=== PATIENT | female | born 1955 ===

== ENCOUNTER 2024-05-16 20:59 | Outpatient (BNV) | payer MEDICARE, SELFPAY | END 2024-05-17 11:26 | PROVIDERS: Admitting Provider Psychiatry & Neurology Psychiatry; Visit Provider Internal Medicine Cardiovascular Disease | DX: F29 Unspecified psychosis not due to a substance or known physiological condition (principal) | CPT/HCPCS: 93010 ==

== ENCOUNTER 2024-05-16 20:59 | Inpatient (IN) | payer MEDICARE, SELFPAY ==
[2024-05-16 21:32] VITALS: BP 129/66; PULSE 70; RESP 20; TEMP 36.2; O2SAT 97
[2024-05-16 21:35] VITALS: BMI 25.7
[2024-05-16] MEDS: traZODone HCL 25 MG HALFTAB PO (23:50)
[2024-05-16] MEDS: Acetaminophen 325 MG TABLET 650 MG PO (23:50)
--- NOTE | 2024-05-17 | ECG_ITS ---
Test Reason : BASELINE EKG Blood Pressure : / mmHG Vent. Rate : 071 BPM Atrial Rate : 071 BPM P-R Int : 160 ms QRS Dur : 082 ms QT Int : 382 ms P-R-T Axes : 062 052 049 degrees QTc Int : 415 ms Normal sinus rhythm Normal ECG No previous ECGs available Referred By: Alyssa Rodriguez Electronically Signed By:German Martinez
--- NOTE | 2024-05-17 04:34 | PC.NURSE ---
Patient is a 68 y/o female admitted to S1 from [facility] at 21:23 on a CV for major depressive disorder. Patient has a PMHx of psychosis and anxiety with a psychiatric inpatient hospitalization approximately a month ago. Patient went to the ED at [facility] on 05/13/2024 with complaints of worsening anxiety and suicidal thoughts. Patient is alert and oriented x 4 upon arrival, very anxious and restless but cooperative and answering assessment questions appropriately. Patient reports inability to effectively cope with feelings of anxiety and depression since mother in 2019. Patient is currently denying any current thoughts of self harm / SI, is able to contract for safety. Skin and contraband check were completed upon arrival, patient oriented to unit and placed on five minutes checks. Medical history is significant for Insomnia, pure hypercholesterolemia, seizure disorder, transaminitis and vitamin b12 deficiency. director of logistics providers notified on admission.
--- NOTE | 2024-05-17 09:05 | P.HPPS_ITS ---
HPI Date of Service: 05/17/24 Chief Complaint: Major depressive disorder Sources of Information: patient interviewed, chart reviewed and crisis/core team assessment reviewed HPI Subjective Notes: Kramer Warning and Conditional Voluntary Narrative: The patient is a 68-year-old female, , living with her her own place, referred to the emergency room of another hospital out of our catchment area since she called 911 stating that she was feeling overwhelmed and suicidal. She was rushed to the emergency room of that hospital, assessed by crisis and apparently she adamantly denies suicidal ideation but according to t he assessment she had been worsening with suicidal ideation and ideas of harming herself. She also complained of anxiety, depressed mood, anhedonia and feelings of hopelessness. The assessment on the emergency room also noticed intermittently agitated and yelling she stating that she wants to go back home. She needed to be medicated IM at that point. On intake, the patient was extremely anxious hyperventilating unable to answer proper questions. I ordered 1 dose of Ativan 1 mg p.o. daily that help her and eventually was able to interview her. She admitted besides her depressive symptoms elicited before, she admitted psychotic symptoms such as paranoid delusions, the feeling that she is going to get 0.7 and disorganized thought process with thought blocking. She was able to contract for safety. I tried to gather collateral information, it seems that the patient had been treated before for depression and admitted 1 month before. Also it was noted that she had a past history of cognitive Past Psychiatric History: The patient is a very poor historian but apparently she was admitted 1 month before on another hospital for anxiety depression and disorganized thought process. It is unclear if the patient had been compliant after the discharge. Medical Evaluation Reviewed: Yes [facility] Medical History Depression Family History: Denies Social History: The patient had been twice, she lives with her current in her home. Substance History: Denies Trauma History: Unable to assess, the patient is a very poor historian Diagnostics Vital Signs (24Hr): Vital Signs - 24 hr 05/16/24 21:32 Temperature 97.2 F Pulse Rate 70 Respiratory Rate 20 Blood Pressure 129/66 Pulse Oximetry 97 Oxygen Delivery Method Room Air BMI result Body Mass Index 25.7 Meds/Allergies Meds Home Medications ?Medication ?Instructions ?Recorded ?Confirmed ?Type benztropine 0.5 mg tablet 0.5 mg PO BID 05/16/24 05/16/24 History escitalopram oxalate 20 mg tablet 20 mg PO DAILY 05/16/24 05/16/24 History risperidone 2 mg tablet 2 mg PO BEDTIME 05/16/24 05/16/24 History ropinirole 0.25 mg tablet 0.25 mg PO TID 05/16/24 05/16/24 History Allergies Allergies Allergy/AdvReac Type Severity Reaction Status Date / Time No Known Allergies Allergy Verified 05/16/24 21:42 Mental Status Exam Mental Status Exam Patient Appearance: Appropriate (On hospital gowns) Patient Orientation: Person and Situation Level of Consciousness: Awake Patient Behavior: Passive and Restless Mood Description: Withdrawn Affect Description: Labile Patient Cognition Impaired: Yes Ability to Follow Directions: Fair Speech Pattern: Impoverished Hallucinations: None Delusions: Paranoid Ideation and Ideas of Reference Thought Process: Illogical and Distracted Thought Content: positive for [place] and positive for Loose Associations Judgement: Poor Assessment & Plan Assessment & Plan (1) Psychosis: Status: Acute Code(s): F29 - Unspecified psychosis not due to a substance or known physiological co ndition (2) Depression: Status: Acute Code(s): F32.A - Depression, unspecified Plan The patient is an elderly female with a past history of a prior admission to the hospital for depression, anxiety and psychosis. Also it was noticed that she has cognitive impairment. She called 911 stating that she was suicidal and transferred into the hospital for psychiatric assessment transferred to this facility for stabilization. Plan 1. Gather collateral information. The patient is a very poor historian and we will need to get more information from her . 2. Start Ativan p.r.n. anxiety. 3. Continue with Risperdal 2 mg p.o. q.h.s.. Since the patient seems grossly psychotic we are going to increase Risperdal 1 mg p.o. q.a.m.. 4. Continue with medical workout. 5. 15 minute checks since the patient is able to contract for safety. 6. Reassessment with results Patient educated on: diagnosis Informed Consent: further education needed Reason for continued inpatient stay Substantial Risk for: harm to self, inability to function, rapid decompensation and med/psych decompensation Statement Statement: I have reviewed the history and physical and performed a pertinent examination on my patient. No changes have occurred unless specified. If the History and Physical was not performed prior to admission, the Hospitalist's service will be consulted for completing the admission physical. Time Spent With Patient Time: Total time managing care of this patient today __45__ minutes.
--- NOTE | 2024-05-17 11:07 | PM.IMCN ---
History of Present Illness Data of Consult Service Date: 05/17/24 Primary Care Provider: Unknown Physician HPI Reason for consult: Medical consult A 68 years old lady with PMH of depresison and psychosis who presents to the hospital for major depression attack with anxiety and suicidal thoughts. She denies any physical complaints. No chest pain, palpitations, SOB, nausea, vomiting, diarrhea or urinary symptoms. Hispitalist team asked for medical evaluation and clearance. Review of Systems Review of Systems: No fever, chills or weakness No chest pain, palpitation No shortness of breath or coughing No abdominal pain, nausea or vomiting No urinary symptoms No any rash or wounds PMFSH Medical History Depression Social History Household Members: Spouse Household Members Other:: Farhat Bocanegra, [phone] Housing: Apartment Do you presently have visiting nurse or other home services: No Patient Tobacco Use Status: Former Tobacco user Years Smoked: 20 years, stopped in 1994. Smoked in Last 30 Days: No Use of substances other than those prescribed or required for medical reasons: No Have you been hit, kicked, punched, or otherwise hurt by someone within the past year? If so, by whom?: No Do you feel safe in your current relationship?: Yes Is there a partner from a previous relationship who is making you feel unsafe now?: No Are you made to feel afraid or neglected: No Advance Directives: No Advance Directives Information Provided: No Do you have a plan to hurt others: No Plan Recently lost weight without trying: No Nutrition Risks: No Nutritional Risk Patient : No Meds Allergies Allergy/AdvReac Type Severity Reaction Status Date / Time No Known Allergies Allergy Verified 05/16/24 21:42 Active Medications: Current Medications Acetaminophen (Acetaminophen 325 Mg Tablet) 650 mg PO Q6H PRN PRN Reason: Headache/Pain Mild Scale (1-3) Last Admin: 05/16/24 23:50 Dose: 650 mg Al Hydroxide/Mg Hydroxide (Magnesium Hydrox/Alum Hydrox 30 Ml Oral.Susp) 30 ml PO Q6H PRN PRN Reason: Heartburn/Nausea Benztropine Mesylate (Benztropine Mesylate 0.5 Mg Tablet) 0.5 mg PO BID [facility] Last Admin: 05/17/24 09:42 Dose: Not Given Escitalopram Oxalate (Escitalopram Oxalate 20 Mg Tablet) 20 mg PO DAILY [facility] Last Admin: 05/17/24 09:42 Dose: Not Given Magnesium Hydroxide (Milk Of Magnesia 30 Ml Oral.Susp) 30 ml PO DAILY PRN PRN Reason: Constipation Nicotine (Nicotine 21 Mg Patch.Td24) 21 mg TRANSDERMA DAILY PRN PRN Reason: smoking cessation Nicotine Polacrilex (Nicotine Polacrilex 2 Mg Gum) 4 mg BUCCAL Q2H PRN PRN Reason: Nicotine Cravings Risperidone (Risperidone 2 Mg Tablet) 2 mg PO BEDTIME [facility] Ropinirole HCl (Ropinirole Hcl 0.25 Mg Tablet) 0.25 mg PO TID [facility] Last Admin: 05/17/24 09:42 Dose: Not Given Trazodone HCl (Trazodone Hcl 25 Mg Halftab) 25 mg PO BEDTIME MRX1 PRN PRN Reason: Insomnia Last Admin: 05/16/24 23:50 Dose: 25 mg Home Medications ?Medication ?Instructions ?Recorded ?Confirmed ?Last Taken ?Type benztropine 0.5 mg tablet 0.5 mg PO BID 05/16/24 05/16/24 Unknown History escitalopram oxalate 20 mg tablet 20 mg PO DAILY 05/16/24 05/16/24 Unknown History risperidone 2 mg tablet 2 mg PO BEDTIME 05/16/24 05/16/24 Unknown History ropinirole 0.25 mg tablet 0.25 mg PO TID 05/16/24 05/16/24 Unknown History Physical Exam Vital Signs and Narrative: Vital Signs: Last Vital Signs Temp 97.2 F 05/16/24 21:32 Pulse 70 05/16/24 21:32 Resp 20 05/16/24 21:32 BP 129/66 05/16/24 21:32 Pulse Ox 97 05/16/24 21:32 O2 Del Method Room Air 05/16/24 21:32 BMI result Body Mass Index 25.7 Const: Other: Constitutional : Awake, interactive, not in distress Neck : Normal inspection, Supple Cardiovascular : RRR, no JVP, no lower extremity edema Respiratory : good bilateral air entry, no crackles, wheezes or rhonchi Gastrointestinal: soft, lax, Normal bowel sounds, Non tender Skin : Warm, Dry Neurological : Alert & oriented x3, No focal deficit , CN 2-12 within normal Assessment and Plan (1) Depression: Status: Acute Plan A 68 years old lady with PMH of depression and psychosis who presents to the hospital for major depression attack with anxiety and suicidal thoughts. Major depression disorder No active medical problems at this point Psychiatrist to treat depression EKG to check for prolonged QT or ischemic changes Based on history and exam there are no contraindications for ECT if needed Thank you for the consult please contact hospitalist team for any further questions.
[2024-05-17] MEDS: rOPINIRole HCL 0.25 MG TABLET PO ×3 (11:11→22:14)
[2024-05-17] MEDS: Escitalopram Oxalate 20 MG TABLET PO (11:12)
[2024-05-17] MEDS: Benztropine Mesylate 0.5 MG TABLET PO ×2 (11:12→22:14)
[2024-05-17] MEDS: LORazepam 1 MG TABLET PO (11:22)
[2024-05-17 20:00] VITALS: BP 129/62; PULSE 62; RESP 18; TEMP 36.9; O2SAT 96
[2024-05-17] MEDS: risperiDONE 2 MG TABLET PO (22:13)
[2024-05-17] MEDS: Acetaminophen 325 MG TABLET 650 MG PO (22:13)
[2024-05-17] MEDS: traZODone HCL 25 MG HALFTAB PO (22:14)
[2024-05-18 08:00] VITALS: BP 112/56; PULSE 62; RESP 18; TEMP 36.4; O2SAT 96
[2024-05-18] MEDS: Benztropine Mesylate 0.5 MG TABLET PO ×2 (08:51→20:33)
[2024-05-18] MEDS: Escitalopram Oxalate 20 MG TABLET PO (08:51)
[2024-05-18] MEDS: rOPINIRole HCL 0.25 MG TABLET PO ×3 (08:51→20:32)
[2024-05-18] MEDS: risperiDONE 1 MG TABLET PO (08:51)
--- NOTE | 2024-05-18 11:38 | HO.PSYCHPN ---
Subjective Subjective Date of Service: 05/18/24 Reason For Visit: Major depressive disorder Subjective Notes: Conditional Voluntary Interim History: The nursing staff reported the patient refused vital signs she had been hyperventilating yesterday. She received Ativan 1 mg with fair results. The patient had been very irritable in the evening, paranoid stating that people wants to poison her hurt her. Yesterday she did not have breakfast but she ate lunch. On interview the patient remains paranoid, slightly sedated since we increase Risperdal up to 1 mg in the morning and kept 2 mg at bedtime. Mental Status Exam Mental Status Exam Patient Appearance: Appropriate Patient Orientation: Person and Situation Level of Consciousness: Awake and Appropriate Patient Behavior: Guarded and Passive Mood Description: Withdrawn Affect Description: Labile Patient Cognition Impaired: Yes Ability to Follow Directions: Good Speech Pattern: Impoverished Hallucinations: None Delusions: Paranoid Ideation Thought Process: Illogical, Distracted and Slowed Thinking Thought Content: positive for [place] and positive for Poverty of Content Judgement: Fair Diagnostics Vital Signs (24Hr): Vital Signs - 24 hr 05/17/24 20:00 05/18/24 08:00 Temperature 98.5 F 97.5 F Pulse Rate 62 62 Respiratory Rate 18 18 Blood Pressure 129/62 112/56 L Pulse Oximetry 96 96 Oxygen Delivery Method Room Air Room Air BMI result Body Mass Index 25.7 Medications Medications Current Medications Acetaminophen (Acetaminophen 325 Mg Tablet) 650 mg PO Q6H PRN PRN Reason: Headache/Pain Mild Scale (1-3) Last Admin: 05/17/24 22:13 Dose: 650 mg Al Hydroxide/Mg Hydroxide (Magnesium Hydrox/Alum Hydrox 30 Ml Oral.Susp) 30 ml PO Q6H PRN PRN Reason: Heartburn/Nausea Benztropine Mesylate (Benztropine Mesylate 0.5 Mg Tablet) 0.5 mg PO BID [facility] Last Admin: 05/18/24 08:51 Dose: 0.5 mg Escitalopram Oxalate (Escitalopram Oxalate 20 Mg Tablet) 20 mg PO DAILY [facility] Last Admin: 05/18/24 08:51 Dose: 20 mg Lorazepam (Lorazepam 1 Mg Tablet) 1 mg PO Q6H PRN PRN Reason: Anxiety Magnesium Hydroxide (Milk Of Magnesia 30 Ml Oral.Susp) 30 ml PO DAILY PRN PRN Reason: Constipation Nicotine (Nicotine 21 Mg Patch.Td24) 21 mg TRANSDERMA DAILY PRN PRN Reason: smoking cessation Nicotine Polacrilex (Nicotine Polacrilex 2 Mg Gum) 4 mg BUCCAL Q2H PRN PRN Reason: Nicotine Cravings Risperidone (Risperidone 2 Mg Tablet) 2 mg PO BEDTIME [facility] Last Admin: 05/17/24 22:13 Dose: 2 mg Risperidone (Risperidone 1 Mg Tablet) 1 mg PO DAILY [facility] Last Admin: 05/18/24 08:51 Dose: 1 mg Ropinirole HCl (Ropinirole Hcl 0.25 Mg Tablet) 0.25 mg PO TID [facility] Last Admin: 05/18/24 08:51 Dose: 0.25 mg Trazodone HCl (Trazodone Hcl 25 Mg Halftab) 25 mg PO BEDTIME MRX1 PRN PRN Reason: Insomnia Last Admin: 05/17/24 22:14 Dose: 25 mg Allergies Allergies Allergy/AdvReac Type Severity Reaction Status Date / Time No Known Allergies Allergy Verified 05/16/24 21:42 Assessment & Plan Assessment & Plan (1) Psychosis: Status: Acute Code(s): F29 - Unspecified psychosis not due to a substance or known physiological condition (2) Depression: Status: Acute Code(s): F32.A - Depression, unspecified Plan A 68 years old lady with PMH of depression and psychosis who presents to the hospital for major depression attack with anxiety and suicidal thoughts. Major depression disorder No active medical problems at this point Psychiatrist to treat depression EKG to check for prolonged QT or ischemic changes Based on history and exam there are no contraindications for ECT if needed Plan 1. Gather collateral information. 2. Continue 15 minute checks. 3. Keep Ativan as p.r.n. and increase Risperdal to target psychosis. Reason for continued inpatient stay Substantial Risk for: inability to function, rapid decompensation and med/psych decompensation Time Spent With Patient Time: Total time managing care of this patient today __20__ minutes.
[2024-05-18] MEDS: LORazepam 1 MG TABLET PO ×2 (12:07→20:32)
[2024-05-18 20:00] VITALS: BP 126/58; PULSE 80; RESP 16; TEMP 36.5; O2SAT 96
[2024-05-18] MEDS: traZODone HCL 25 MG HALFTAB PO (20:32)
[2024-05-18] MEDS: risperiDONE 2 MG TABLET PO (20:32)
[2024-05-19] MEDS: traZODone HCL 25 MG HALFTAB PO (01:23)
[2024-05-19] MEDS: LORazepam 1 MG TABLET PO ×2 (02:58→20:44)
[2024-05-19 08:00] VITALS: BP 126/56; PULSE 82; RESP 18; TEMP 36.3; O2SAT 97
[2024-05-19] MEDS: rOPINIRole HCL 0.25 MG TABLET PO ×3 (09:09→20:43)
[2024-05-19] MEDS: risperiDONE 1 MG TABLET PO (09:09)
[2024-05-19] MEDS: Benztropine Mesylate 0.5 MG TABLET PO ×2 (09:09→20:44)
[2024-05-19] MEDS: Escitalopram Oxalate 20 MG TABLET PO (09:09)
--- NOTE | 2024-05-19 13:54 | HO.PSYCHPN ---
Subjective Subjective Date of Service: 05/19/24 Reason For Visit: Major depressive disorder Subjective Notes: Conditional Voluntary Healthcare Proxy: Yes Interim History: The nursing staff reported the patient has been compliant with the medications are not working she slept 6 hours. The director of social services reported that she could contact the and apparently she had past psychiatric history with probably epilepsy in the 80s and her symptoms worsened in the last 5 years after COVID and the loss of her parents. She had been more confused and cognitive decline. The patient called herself 911. On interview the patient reports feeling anxious and depressed, agreed to start Klonopin standing Mental Status Exam Mental Status Exam Patient Appearance: Appropriate Patient Orientation: Person and Situation Level of Consciousness: Awake and Appropriate Patient Behavior: Guarded and Passive Mood Description: Withdrawn Affect Description: Constricted Patient Cognition Impaired: Yes Ability to Follow Directions: Good Speech Pattern: Clear Hallucinations: None Delusions: Not Present Thought Process: Distracted and Slowed Thinking Thought Content: positive for [place] and positive for Poverty of Content Judgement: Fair Diagnostics Vital Signs (24Hr): Vital Signs - 24 hr 05/18/24 20:00 05/19/24 08:00 Temperature 97.7 F 97.4 F Pulse Rate 80 82 Respiratory Rate 16 18 Blood Pressure 126/58 L 126/56 L Pulse Oximetry 96 97 Oxygen Delivery Method Room Air Room Air BMI result Body Mass Index 25.7 Medications Medications Current Medications Acetaminophen (Acetaminophen 325 Mg Tablet) 650 mg PO Q6H PRN PRN Reason: Headache/Pain Mild Scale (1-3) Last Admin: 05/17/24 22:13 Dose: 650 mg Al Hydroxide/Mg Hydroxide (Magnesium Hydrox/Alum Hydrox 30 Ml Oral.Susp) 30 ml PO Q6H PRN PRN Reason: Heartburn/Nausea Benztropine Mesylate (Benztropine Mesylate 0.5 Mg Tablet) 0.5 mg PO BID [facility] Last Admin: 05/19/24 09:09 Dose: 0.5 mg Escitalopram Oxalate (Escitalopram Oxalate 20 Mg Tablet) 20 mg PO DAILY [facility] Last Admin: 05/19/24 09:09 Dose: 20 mg Lorazepam (Lorazepam 1 Mg Tablet) 1 mg PO Q6H PRN PRN Reason: Anxiety Last Admin: 05/19/24 02:58 Dose: 1 mg Magnesium Hydroxide (Milk Of Magnesia 30 Ml Oral.Susp) 30 ml PO DAILY PRN PRN Reason: Constipation Nicotine (Nicotine 21 Mg Patch.Td24) 21 mg TRANSDERMA DAILY PRN PRN Reason: smoking cessation Nicotine Polacrilex (Nicotine Polacrilex 2 Mg Gum) 4 mg BUCCAL Q2H PRN PRN Reason: Nicotine Cravings Risperidone (Risperidone 2 Mg Tablet) 2 mg PO BEDTIME [facility] Last Admin: 05/18/24 20:32 Dose: 2 mg Risperidone (Risperidone 1 Mg Tablet) 1 mg PO DAILY [facility] Last Admin: 05/19/24 09:09 Dose: 1 mg Ropinirole HCl (Ropinirole Hcl 0.25 Mg Tablet) 0.25 mg PO TID [facility] Last Admin: 05/19/24 09:09 Dose: 0.25 mg Trazodone HCl (Trazodone Hcl 25 Mg Halftab) 25 mg PO BEDTIME MRX1 PRN PRN Reason: Insomnia Last Admin: 05/19/24 01:23 Dose: 25 mg Allergies Allergies Allergy/AdvReac Type Severity Reaction Status Date / Time No Known Allergies Allergy Verified 05/16/24 21:42 Assessment & Plan Assessment & Plan (1) Psychosis: Status: Acute Code(s): F29 - Unspecified psychosis not due to a substance or known physiological condition (2) Depression: Status: Acute Code(s): F32.A - Depression, unspecified Plan The patient is an elderly female with a past history of a prior admission to the hospital for depression, anxiety and psychosis. Also it was noticed that she has cognitive impairment. She called 911 stating that she was suicidal and transferred into the hospital for psychiatric assessment transferred to this facility for stabilization. Plan 1. Gather collateral information. The patient is a very poor historian and we will need to get more information from her . 2. Start Ativan p.r.n. anxiety. 3. Continue with Risperdal 2 mg p.o. q.h.s.. Since the patient seems grossly psychotic we are going to increase Risperdal 1 mg p.o. q.a.m.. 4. Continue with medical workout. 5. 15 minute checks since the patient is able to contract for safety. 6. Reassessment with results. 7. Start Klonopin 0.5 p.o. t.i.d. Reason for continued inpatient stay Substantial Risk for: inability to function, rapid decompensation and med/psych decompensation Time Spent With Patient Time: Total time managing care of this patient today __20__ minutes.
[2024-05-19 15:28] VITALS: BMI 26.6
[2024-05-19 20:00] VITALS: BP 142/71; PULSE 74; RESP 16; TEMP 36.5; O2SAT 96
[2024-05-19] MEDS: clonazePAM 0.5 MG TABLET PO (20:44)
[2024-05-19] MEDS: risperiDONE 2 MG TABLET PO (20:44)
[2024-05-20] MEDS: LORazepam 1 MG TABLET PO (01:59)
[2024-05-20 08:00] VITALS: BP 143/68; PULSE 71; RESP 18; TEMP 36; O2SAT 97
[2024-05-20] MEDS: Escitalopram Oxalate 20 MG TABLET PO (08:14)
[2024-05-20] MEDS: Benztropine Mesylate 0.5 MG TABLET PO ×2 (08:14→20:25)
[2024-05-20] MEDS: risperiDONE 1 MG TABLET PO (08:14)
[2024-05-20] MEDS: rOPINIRole HCL 0.25 MG TABLET PO ×3 (08:15→20:25)
[2024-05-20] MEDS: clonazePAM 0.5 MG TABLET PO ×3 (08:15→20:25)
--- NOTE | 2024-05-20 11:56 | P.PNPSI_ITS ---
Subjective Subjective Date of Service: 05/20/24 Reason For Visit: Major depressive disorder Subjective Notes: Conditional Voluntary Interim History: The nursing staff reported the patient appears very anxious she required p.r.n. Ativan yesterday in the afternoon. The staff has noticed slow gait. The geriatric social worker reported that we are going to the family meeting next Thursday. On interview the patient denies over-sedation with the addition of Klonopin. At this moment the patient is at the highest dose of Lexapro. Mental Status Exam Mental Status Exam Patient Appearance: Appropriate Patient Orientation: Person and Situation Level of Consciousness: Awake and Appropriate Patient Behavior: Guarded and Passive Mood Description: Withdrawn Affect Description: Constricted Patient Cognition Impaired: Yes Ability to Follow Directions: Good Speech Pattern: Clear Hallucinations: None Delusions: Ideas of Reference Thought Process: Distracted and Slowed Thinking Thought Content: positive for [place] and positive for Poverty of Content Judgement: Fair Diagnostics Vital Signs (24Hr): Vital Signs - 24 hr 05/19/24 20:00 05/20/24 08:00 Temperature 97.7 F 96.8 F Pulse Rate 74 71 Respiratory Rate 16 18 Blood Pressure 142/71 H 143/68 H Pulse Oximetry 96 97 Oxygen Delivery Method Room Air Room Air BMI result Body Mass Index 26.6 Medications Medications Current Medications Acetaminophen (Acetaminophen 325 Mg Tablet) 650 mg PO Q6H PRN PRN Reason: Headache/Pain Mild Scale (1-3) Last Admin: 05/17/24 22:13 Dose: 650 mg Al Hydroxide/Mg Hydroxide (Magnesium Hydrox/Alum Hydrox 30 Ml Oral.Susp) 30 ml PO Q6H PRN PRN Reason: Heartburn/Nausea Benztropine Mesylate (Benztropine Mesylate 0.5 Mg Tablet) 0.5 mg PO BID [facility] Last Admin: 05/20/24 08:14 Dose: 0.5 mg Clonazepam (Clonazepam 0.5 Mg Tablet) 0.5 mg PO TID [facility] Last Admin: 05/20/24 08:15 Dose: 0.5 mg Escitalopram Oxalate (Escitalopram Oxalate 20 Mg Tablet) 20 mg PO DAILY [facility] Last Admin: 05/20/24 08:14 Dose: 20 mg Lorazepam (Lorazepam 1 Mg Tablet) 1 mg PO Q6H PRN PRN Reason: Anxiety Last Admin: 05/20/24 01:59 Dose: 1 mg Magnesium Hydroxide (Milk Of Magnesia 30 Ml Oral.Susp) 30 ml PO DAILY PRN PRN Reason: Constipation Nicotine (Nicotine 21 Mg Patch.Td24) 21 mg TRANSDERMA DAILY PRN PRN Reason: smoking cessation Nicotine Polacrilex (Nicotine Polacrilex 2 Mg Gum) 4 mg BUCCAL Q2H PRN PRN Reason: Nicotine Cravings Risperidone (Risperidone 2 Mg Tablet) 2 mg PO BEDTIME [facility] Last Admin: 05/19/24 20:44 Dose: 2 mg Risperidone (Risperidone 1 Mg Tablet) 1 mg PO DAILY [facility] Last Admin: 05/20/24 08:14 Dose: 1 mg Ropinirole HCl (Ropinirole Hcl 0.25 Mg Tablet) 0.25 mg PO TID [facility] Last Admin: 05/20/24 08:15 Dose: 0.25 mg Trazodone HCl (Trazodone Hcl 25 Mg Halftab) 25 mg PO BEDTIME MRX1 PRN PRN Reason: Insomnia Last Admin: 05/19/24 01:23 Dose: 25 mg Allergies Allergies Allergy/AdvReac Type Severity Reaction Status Date / Time No Known Allergies Allergy Verified 05/16/24 21:42 Assessment & Plan Assessment & Plan (1) Psychosis: Status: Acute Code(s): F29 - Unspecified psychosis not due to a substance or known physiological condition (2) Depression: Status: Acute Code(s): F32.A - Depression, unspecified Plan The patient is an elderly female with a past history of a prior admission to the hospital for depression, anxiety and psychosis. Also it was noticed that she has cognitive impairment. She called 911 stating that she was suicidal and transferred into the hospital for psychiatric assessment transferred to this facility for stabilization. Plan 1. Gather collateral information. The patient is a very poor historian and we will need to get more information from her . 2. Start Ativan p.r.n. anxiety. 3. Continue with Risperdal 2 mg p.o. q.h.s.. Since the patient seems grossly psychotic we are going to increase Risperdal 1 mg p.o. q.a.m.. 4. Continue with medical workout. 5. 15 minute checks since the patient is able to contract for safety. 6. Reassessment with results. 7. Start Klonopin 0.5 p.o. t.i.d. Reason for continued inpatient stay Substantial Risk for: inability to function, rapid decompensation and med/psych decompensation Time Spent With Patient Time: Total time managing care of this patient today __20__ minutes.
[2024-05-20 20:00] VITALS: BP 106/52; PULSE 63; RESP 18; TEMP 36.6; O2SAT 96
[2024-05-20] MEDS: risperiDONE 2 MG TABLET PO (20:25)
[2024-05-20] MEDS: traZODone HCL 25 MG HALFTAB PO (20:25)
--- NOTE | 2024-05-21 06:38 | HO.PSYCHPN ---
Subjective Subjective Date of Service: 05/21/24 Reason For Visit: Major depressive disorder Subjective Notes: Conditional Voluntary Interim History: The nursing staff reported the patient had been anxious, she request p.r.n. Ativan at 01:00 in the morning. On interview the patient remains slightly anxious but less paranoid. Some involuntary movements noticed. On Requip. Mental Status Exam Mental Status Exam Patient Appearance: Appropriate Patient Orientation: Person and Situation Level of Consciousness: Awake and Appropriate Patient Behavior: Guarded and Passive Mood Description: Withdrawn Affect Description: Constricted Patient Cognition Impaired: Yes Ability to Follow Directions: Good Speech Pattern: Clear Hallucinations: None Delusions: Ideas of Reference Thought Process: Distracted and Slowed Thinking Thought Content: positive for [place] and positive for Poverty of Content Judgement: Fair Diagnostics Vital Signs (24Hr): Vital Signs - 24 hr 05/20/24 08:00 05/20/24 20:00 Temperature 96.8 F 97.8 F Pulse Rate 71 63 Respiratory Rate 18 18 Blood Pressure 143/68 H 106/52 L Pulse Oximetry 97 96 Oxygen Delivery Method Room Air Room Air BMI result Body Mass Index 26.6 Medications Medications Current Medications Acetaminophen (Acetaminophen 325 Mg Tablet) 650 mg PO Q6H PRN PRN Reason: Headache/Pain Mild Scale (1-3) Last Admin: 05/17/24 22:13 Dose: 650 mg Al Hydroxide/Mg Hydroxide (Magnesium Hydrox/Alum Hydrox 30 Ml Oral.Susp) 30 ml PO Q6H PRN PRN Reason: Heartburn/Nausea Benztropine Mesylate (Benztropine Mesylate 0.5 Mg Tablet) 0.5 mg PO BID [facility] Last Admin: 05/20/24 20:25 Dose: 0.5 mg Clonazepam (Clonazepam 0.5 Mg Tablet) 0.5 mg PO TID [facility] Last Admin: 05/20/24 20:25 Dose: 0.5 mg Escitalopram Oxalate (Escitalopram Oxalate 20 Mg Tablet) 20 mg PO DAILY [facility] Last Admin: 05/20/24 08:14 Dose: 20 mg Lorazepam (Lorazepam 1 Mg Tablet) 1 mg PO Q6H PRN PRN Reason: Anxiety Last Admin: 05/20/24 01:59 Dose: 1 mg Magnesium Hydroxide (Milk Of Magnesia 30 Ml Oral.Susp) 30 ml PO DAILY PRN PRN Reason: Constipation Nicotine (Nicotine 21 Mg Patch.Td24) 21 mg TRANSDERMA DAILY PRN PRN Reason: smoking cessation Nicotine Polacrilex (Nicotine Polacrilex 2 Mg Gum) 4 mg BUCCAL Q2H PRN PRN Reason: Nicotine Cravings Risperidone (Risperidone 2 Mg Tablet) 2 mg PO BEDTIME [facility] Last Admin: 05/20/24 20:25 Dose: 2 mg Risperidone (Risperidone 1 Mg Tablet) 1 mg PO DAILY [facility] Last Admin: 05/20/24 08:14 Dose: 1 mg Ropinirole HCl (Ropinirole Hcl 0.25 Mg Tablet) 0.25 mg PO TID [facility] Last Admin: 05/20/24 20:25 Dose: 0.25 mg Trazodone HCl (Trazodone Hcl 25 Mg Halftab) 25 mg PO BEDTIME MRX1 PRN PRN Reason: Insomnia Last Admin: 05/20/24 20:25 Dose: 25 mg Allergies Allergies Allergy/AdvReac Type Severity Reaction Status Date / Time No Known Allergies Allergy Verified 05/16/24 21:42 Assessment & Plan Assessment & Plan (1) Psychosis: Status: Acute Code(s): F29 - Unspecified psychosis not due to a substance or known physiological condition (2) Depression: Status: Acute Code(s): F32.A - Depression, unspecified Plan The patient is an elderly female with a past history of a prior admission to the hospital for depression, anxiety and psychosis. Also it was noticed that she has cognitive impairment. She called 911 stating that she was suicidal and transferred into the hospital for psychiatric assessment transferred to this facility for stabilization. Plan 1. Gather collateral information. The patient is a very poor historian and we will need to get more information from her . 2. Start Ativan p.r.n. anxiety. 3. Continue with Risperdal 2 mg p.o. q.h.s.. Since the patient seems grossly psychotic we are going to increase Risperdal 1 mg p.o. q.a.m.. 4. Continue with medical workout. 5. 15 minute checks since the patient is able to contract for safety. 6. Reassessment with results. 7. Start Klonopin 0.5 p.o. t.i.d. keep Ativan p.r.n.. Reason for continued inpatient stay Substantial Risk for: inability to function, rapid decompensation and med/psych decompensation Time Spent With Patient Time: Total time managing care of this patient today __20__ minutes.
[2024-05-21 07:55] VITALS: BP 134/63; PULSE 64; RESP 18; TEMP 36.3; O2SAT 94
[2024-05-21] MEDS: risperiDONE 1 MG TABLET PO (08:40)
[2024-05-21] MEDS: rOPINIRole HCL 0.25 MG TABLET PO ×3 (08:40→20:30)
[2024-05-21] MEDS: Benztropine Mesylate 0.5 MG TABLET PO ×2 (08:40→20:30)
[2024-05-21] MEDS: Escitalopram Oxalate 20 MG TABLET PO (08:40)
[2024-05-21] MEDS: clonazePAM 0.5 MG TABLET PO ×3 (08:40→20:30)
[2024-05-21 19:54] VITALS: BP 122/58; PULSE 69; RESP 18; TEMP 36.4; O2SAT 96
[2024-05-21] MEDS: traZODone HCL 25 MG HALFTAB PO (20:30)
[2024-05-21] MEDS: risperiDONE 2 MG TABLET PO (20:30)
[2024-05-22 09:16] VITALS: BP 107/49; PULSE 71; RESP 16; TEMP 36.6; O2SAT 95
[2024-05-22] MEDS: Benztropine Mesylate 0.5 MG TABLET PO ×2 (09:19→20:39)
[2024-05-22] MEDS: clonazePAM 0.5 MG TABLET PO ×3 (09:19→20:39)
[2024-05-22] MEDS: risperiDONE 1 MG TABLET PO (09:19)
[2024-05-22] MEDS: rOPINIRole HCL 0.25 MG TABLET PO ×3 (09:19→20:39)
[2024-05-22] MEDS: Escitalopram Oxalate 20 MG TABLET PO (09:19)
[2024-05-22 20:00] VITALS: BP 123/48; PULSE 72; RESP 18; TEMP 36.7; O2SAT 95
[2024-05-22] MEDS: traZODone HCL 25 MG HALFTAB PO (20:39)
[2024-05-22] MEDS: Mirtazapine 7.5 MG TABLET PO (20:39)
[2024-05-22] MEDS: risperiDONE 2 MG TABLET PO (20:39)
[2024-05-23 08:00] VITALS: BP 116/53; PULSE 74; RESP 16; TEMP 36.6; O2SAT 95
[2024-05-23] MEDS: clonazePAM 0.5 MG TABLET PO ×3 (08:03→21:36)
[2024-05-23] MEDS: Benztropine Mesylate 0.5 MG TABLET PO ×2 (08:03→21:36)
[2024-05-23] MEDS: risperiDONE 1 MG TABLET PO (08:03)
[2024-05-23] MEDS: Escitalopram Oxalate 20 MG TABLET PO (08:03)
[2024-05-23] MEDS: rOPINIRole HCL 0.25 MG TABLET PO ×3 (08:08→21:36)
--- NOTE | 2024-05-23 13:03 | HO.PSYCHPN ---
Subjective Subjective Date of Service: 05/23/24 Reason For Visit: Major depressive disorder Subjective Notes: Conditional Voluntary Interim History: The nursing staff reported the patient had been less anxious eating well, slept 8 hours compliant with treatment. The child protective services social worker reported that we will have a meeting today at 11:00 o'clock. On interview the patient denies new symptoms, still dysphoric but a little better since we increased the Risperdal and add Remeron at night. Mental Status Exam Mental Status Exam Patient Appearance: Appropriate Patient Orientation: Person and Situation Level of Consciousness: Awake and Appropriate Patient Behavior: Guarded and Passive Mood Description: Withdrawn Affect Description: Constricted Patient Cognition Impaired: Yes Ability to Follow Directions: Good Speech Pattern: Clear Hallucinations: None Delusions: Ideas of Reference Thought Process: Distracted and Slowed Thinking Thought Content: positive for [place] and positive for Poverty of Content Judgement: Fair Diagnostics Vital Signs (24Hr): Vital Signs - 24 hr 05/22/24 20:00 05/23/24 08:00 Temperature 98.1 F 97.9 F Pulse Rate 72 74 Respiratory Rate 18 16 Blood Pressure 123/48 L 116/53 L Pulse Oximetry 95 95 Oxygen Delivery Method Room Air Room Air BMI result Body Mass Index 26.6 Medications Medications Current Medications Acetaminophen (Acetaminophen 325 Mg Tablet) 650 mg PO Q6H PRN PRN Reason: Headache/Pain Mild Scale (1-3) Last Admin: 05/17/24 22:13 Dose: 650 mg Al Hydroxide/Mg Hydroxide (Magnesium Hydrox/Alum Hydrox 30 Ml Oral.Susp) 30 ml PO Q6H PRN PRN Reason: Heartburn/Nausea Benztropine Mesylate (Benztropine Mesylate 0.5 Mg Tablet) 0.5 mg PO BID [facility] Last Admin: 05/23/24 08:03 Dose: 0.5 mg Clonazepam (Clonazepam 0.5 Mg Tablet) 0.5 mg PO TID [facility] Last Admin: 05/23/24 08:03 Dose: 0.5 mg Escitalopram Oxalate (Escitalopram Oxalate 20 Mg Tablet) 20 mg PO DAILY [facility] Last Admin: 05/23/24 08:03 Dose: 20 mg Lorazepam (Lorazepam 1 Mg Tablet) 1 mg PO Q6H PRN PRN Reason: Anxiety Last Admin: 05/20/24 01:59 Dose: 1 mg Magnesium Hydroxide (Milk Of Magnesia 30 Ml Oral.Susp) 30 ml PO DAILY PRN PRN Reason: Constipation Mirtazapine (Mirtazapine 7.5 Mg Tablet) 7.5 mg PO BEDTIME [facility] Last Admin: 05/22/24 20:39 Dose: 7.5 mg Nicotine (Nicotine 21 Mg Patch.Td24) 21 mg TRANSDERMA DAILY PRN PRN Reason: smoking cessation Nicotine Polacrilex (Nicotine Polacrilex 2 Mg Gum) 4 mg BUCCAL Q2H PRN PRN Reason: Nicotine Cravings Risperidone (Risperidone 2 Mg Tablet) 2 mg PO BEDTIME [facility] Last Admin: 05/22/24 20:39 Dose: 2 mg Risperidone (Risperidone 1 Mg Tablet) 1 mg PO DAILY [facility] Last Admin: 05/23/24 08:03 Dose: 1 mg Ropinirole HCl (Ropinirole Hcl 0.25 Mg Tablet) 0.25 mg PO TID [facility] Last Admin: 05/23/24 08:08 Dose: 0.25 mg Trazodone HCl (Trazodone Hcl 25 Mg Halftab) 25 mg PO BEDTIME MRX1 PRN PRN Reason: Insomnia Last Admin: 05/22/24 20:39 Dose: 25 mg Allergies Allergies Allergy/AdvReac Type Severity Reaction Status Date / Time No Known Allergies Allergy Verified 05/16/24 21:42 Assessment & Plan Assessment & Plan (1) Psychosis: Status: Acute Code(s): F29 - Unspecified psychosis not due to a substance or known physiological condition (2) Depression: Status: Acute Code(s): F32.A - Depression, unspecified Plan The patient is an elderly female with a past history of a prior admission to the hospital for depression, anxiety and psychosis. Also it was noticed that she has cognitive impairment. She called 911 stating that she was suicidal and transferred into the hospital for psychiatric assessment transferred to this facility for stabilization. Plan 1. Gather collateral information. The patient is a very poor historian and we will need to get more information from her . 2. Start Ativan p.r.n. anxiety. 3. Continue with Risperdal 2 mg p.o. q.h.s.. Since the patient seems grossly psychotic we are going to increase Risperdal 1 mg p.o. q.a.m.. 4. Continue with medical workout. 5. 15 minute checks since the patient is able to contract for safety. 6. Reassessment with results. 7. Start Klonopin 0.5 p.o. t.i.d. keep Ativan p.r.n.. Reason for continued inpatient stay Substantial Risk for: inability to function, rapid decompensation and med/psych decompensation Time Spent With Patient Time: Total time managing care of this patient today __20__ minutes.
[2024-05-23 20:30] VITALS: BP 111/57; PULSE 78; RESP 16; TEMP 36.1; O2SAT 95
[2024-05-23] MEDS: risperiDONE 2 MG TABLET PO (21:36)
[2024-05-23] MEDS: Mirtazapine 7.5 MG TABLET PO (21:36)
[2024-05-24 08:00] VITALS: BP 122/57; PULSE 81; RESP 16; TEMP 36.8; O2SAT 96
[2024-05-24] MEDS: Benztropine Mesylate 0.5 MG TABLET PO ×2 (08:02→21:33)
[2024-05-24] MEDS: Escitalopram Oxalate 20 MG TABLET PO (08:02)
[2024-05-24] MEDS: risperiDONE 1 MG TABLET PO (08:02)
[2024-05-24] MEDS: rOPINIRole HCL 0.25 MG TABLET PO ×3 (08:02→21:33)
[2024-05-24] MEDS: clonazePAM 0.5 MG TABLET PO ×3 (08:02→21:33)
--- NOTE | 2024-05-24 13:00 | P.PNPSI_ITS ---
Subjective Subjective Date of Service: 05/24/24 Reason For Visit: Major depressive disorder Subjective Notes: Conditional Voluntary Interim History: The nursing staff reported the patient had been anxious medication and meal compliant. She slept 7 hours. The mental health social worker reported that yesterday had a meeting with her and they are thinking on discharge planning. On interview in the morning, the patient was very sedated. We discussed options and she agreed to discontinue Risperdal in the morning. Mental Status Exam Mental Status Exam Patient Appearance: Appropriate Patient Orientation: Person and Situation Level of Consciousness: Awake and Appropriate Patient Behavior: Guarded and Passive Mood Description: Withdrawn Affect Description: Constricted Patient Cognition Impaired: Yes Ability to Follow Directions: Good Speech Pattern: Clear Hallucinations: None Delusions: Not Present Thought Process: Distracted and Slowed Thinking Thought Content: positive for [place] and positive for Poverty of Content Judgement: Fair Diagnostics Vital Signs (24Hr): Vital Signs - 24 hr 05/23/24 20:30 05/24/24 08:00 Temperature 97.0 F 98.2 F Pulse Rate 78 81 Respiratory Rate 16 16 Blood Pressure 111/57 L 122/57 L Pulse Oximetry 95 96 Oxygen Delivery Method Room Air Room Air BMI result Body Mass Index 26.6 Medications Medications Current Medications Acetaminophen (Acetaminophen 325 Mg Tablet) 650 mg PO Q6H PRN PRN Reason: Headache/Pain Mild Scale (1-3) Last Admin: 05/17/24 22:13 Dose: 650 mg Al Hydroxide/Mg Hydroxide (Magnesium Hydrox/Alum Hydrox 30 Ml Oral.Susp) 30 ml PO Q6H PRN PRN Reason: Heartburn/Nausea Benztropine Mesylate (Benztropine Mesylate 0.5 Mg Tablet) 0.5 mg PO BID [facility] Last Admin: 05/24/24 08:02 Dose: 0.5 mg Clonazepam (Clonazepam 0.5 Mg Tablet) 0.5 mg PO TID [facility] Last Admin: 05/24/24 08:02 Dose: 0.5 mg Escitalopram Oxalate (Escitalopram Oxalate 20 Mg Tablet) 20 mg PO DAILY [facility] Last Admin: 05/24/24 08:02 Dose: 20 mg Lorazepam (Lorazepam 1 Mg Tablet) 1 mg PO Q6H PRN PRN Reason: Anxiety Last Admin: 05/20/24 01:59 Dose: 1 mg Magnesium Hydroxide (Milk Of Magnesia 30 Ml Oral.Susp) 30 ml PO DAILY PRN PRN Reason: Constipation Mirtazapine (Mirtazapine 7.5 Mg Tablet) 7.5 mg PO BEDTIME [facility] Last Admin: 05/23/24 21:36 Dose: 7.5 mg Nicotine (Nicotine 21 Mg Patch.Td24) 21 mg TRANSDERMA DAILY PRN PRN Reason: smoking cessation Nicotine Polacrilex (Nicotine Polacrilex 2 Mg Gum) 4 mg BUCCAL Q2H PRN PRN Reason: Nicotine Cravings Risperidone (Risperidone 2 Mg Tablet) 2 mg PO BEDTIME [facility] Last Admin: 05/23/24 21:36 Dose: 2 mg Risperidone (Risperidone 1 Mg Tablet) 1 mg PO DAILY [facility] Last Admin: 05/24/24 08:02 Dose: 1 mg Ropinirole HCl (Ropinirole Hcl 0.25 Mg Tablet) 0.25 mg PO TID [facility] Last Admin: 05/24/24 08:02 Dose: 0.25 mg Trazodone HCl (Trazodone Hcl 25 Mg Halftab) 25 mg PO BEDTIME MRX1 PRN PRN Reason: Insomnia Last Admin: 05/22/24 20:39 Dose: 25 mg Allergies Allergies Allergy/AdvReac Type Severity Reaction Status Date / Time No Known Allergies Allergy Verified 05/16/24 21:42 Assessment & Plan Assessment & Plan (1) Psychosis: Status: Acute Code(s): F29 - Unspecified psychosis not due to a substance or known physiological condition (2) Depression: Status: Acute Code(s): F32.A - Depression, unspecified Plan The patient is an elderly female with a past history of a prior admission to the hospital for depression, anxiety and psychosis. Also it was noticed that she has cognitive impairment. She called 911 stating that she was suicidal and transferred into the hospital for psychiatric assessment transferr ed to this facility for stabilization. Plan 1. Gather collateral information. The patient is a very poor historian and we will need to get more information from her . 2. Start Ativan p.r.n. anxiety. 3. Continue with Risperdal 2 mg p.o. q.h.s.. Since the patient seems grossly psychotic we are going to increase Risperdal 1 mg p.o. q.a.m.. We discontinue Risperdal 1 mg p.o. q.a.m. on May 24. 4. Continue with medical workout. 5. 15 minute checks since the patient is able to contract for safety. 6. Reassessment with results. 7. Start Klonopin 0.5 p.o. t.i.d. keep Ativan p.r.n.. Reason for continued inpatient stay Substantial Risk for: inability to function, rapid decompensation and med/psych decompensation Time Spent With Patient Time: Total time managing care of this patient today __20__ minutes.
[2024-05-24 20:00] VITALS: BP 110/55; PULSE 63; RESP 18; TEMP 36.4; O2SAT 92
[2024-05-24] MEDS: Mirtazapine 7.5 MG TABLET PO (21:33)
[2024-05-24] MEDS: risperiDONE 2 MG TABLET PO (21:33)
[2024-05-24] MEDS: traZODone HCL 25 MG HALFTAB PO (21:33)
[2024-05-25 08:00] VITALS: BP 115/54; PULSE 72; RESP 15; TEMP 36.4; O2SAT 98
--- NOTE | 2024-05-25 08:18 | P.PNPSI_ITS ---
Subjective Subjective Date of Service: 05/25/24 Reason For Visit: Major depressive disorder Subjective Notes: Conditional Voluntary Interim History: The nursing staff reported the patient had been compliant with treatment, her affect is flat but she slept well. The occupational therapist staff noticed that she looks more organized and she participates more in groups. On interview the patient reports that she is less sedated since we discontinue Risperdal in the morning. Mental Status Exam Mental Status Exam Patient Appearance: Appropriate Patient Orientation: Person and Situation Level of Consciousness: Awake and Appropriate Patient Behavior: Guarded and Passive Mood Description: Withdrawn Affect Description: Constricted Patient Cognition Impaired: Yes Ability to Follow Directions: Good Speech Pattern: Clear Hallucinations: None Delusions: Not Present Thought Process: Distracted and Slowed Thinking Thought Content: positive for [place] Judgement: Fair Diagnostics Vital Signs (24Hr): Vital Signs - 24 hr 05/24/24 20:00 Temperature 97.5 F Pulse Rate 63 Respiratory Rate 18 Blood Pressure 110/55 L Pulse Oximetry 92 Oxygen Delivery Method Room Air BMI result Body Mass Index 26.6 Medications Medications Current Medications Acetaminophen (Acetaminophen 325 Mg Tablet) 650 mg PO Q6H PRN PRN Reason: Headache/Pain Mild Scale (1-3) Last Admin: 05/17/24 22:13 Dose: 650 mg Al Hydroxide/Mg Hydroxide (Magnesium Hydrox/Alum Hydrox 30 Ml Oral.Susp) 30 ml PO Q6H PRN PRN Reason: Heartburn/Nausea Benztropine Mesylate (Benztropine Mesylate 0.5 Mg Tablet) 0.5 mg PO BID [facility] Last Admin: 05/24/24 21:33 Dose: 0.5 mg Clonazepam (Clonazepam 0.5 Mg Tablet) 0.5 mg PO TID [facility] Last Admin: 05/24/24 21:33 Dose: 0.5 mg Escitalopram Oxalate (Escitalopram Oxalate 20 Mg Tablet) 20 mg PO DAILY [facility] Last Admin: 05/24/24 08:02 Dose: 20 mg Lorazepam (Lorazepam 1 Mg Tablet) 1 mg PO Q6H PRN PRN Reason: Anxiety Last Admin: 05/20/24 01:59 Dose: 1 mg Magnesium Hydroxide (Milk Of Magnesia 30 Ml Oral.Susp) 30 ml PO DAILY PRN PRN Reason: Constipation Mirtazapine (Mirtazapine 7.5 Mg Tablet) 7.5 mg PO BEDTIME [facility] Last Admin: 05/24/24 21:33 Dose: 7.5 mg Nicotine (Nicotine 21 Mg Patch.Td24) 21 mg TRANSDERMA DAILY PRN PRN Reason: smoking cessation Nicotine Polacrilex (Nicotine Polacrilex 2 Mg Gum) 4 mg BUCCAL Q2H PRN PRN Reason: Nicotine Cravings Risperidone (Risperidone 2 Mg Tablet) 2 mg PO BEDTIME [facility] Last Admin: 05/24/24 21:33 Dose: 2 mg Ropinirole HCl (Ropinirole Hcl 0.25 Mg Tablet) 0.25 mg PO TID [facility] Last Admin: 05/24/24 21:33 Dose: 0.25 mg Trazodone HCl (Trazodone Hcl 25 Mg Halftab) 25 mg PO BEDTIME MRX1 PRN PRN Reason: Insomnia Last Admin: 05/24/24 21:33 Dose: 25 mg Allergies Allergies Allergy/AdvReac Type Severity Reaction Status Date / Time No Known Allergies Allergy Verified 05/16/24 21:42 Assessment & Plan Assessment & Plan (1) Psychosis: Status: Acute Code(s): F29 - Unspecified psychosis not due to a substance or known physiological condition (2) Depression: Status: Acute Code(s): F32.A - Depression, unspecified Plan The patient is an elderly female with a past history of a prior admission to the hospital for depression, anxiety and psychosis. Also it was noticed that she has cognitive impairment. She called 911 stating that she was suicidal and transferred into the hospital for psychiatric assessment transferred to this facility for stabilization. Plan 1. Gather collateral information. The patient is a very poor historian and we will need to get more information from her . 2. Start Ativan p.r.n. anxiety. 3. Continue with Risperdal 2 mg p.o. q.h.s.. Since the patient seems grossly psychotic we are going to increase Risperdal 1 mg p.o. q.a.m.. We discontinue Risperdal 1 mg p.o. q.a.m. on May 24. 4. Continue with medical workout. 5. 15 minute checks since the patient is able to contract for safety. 6. Reassessment with results. 7. Start Klonopin 0.5 p.o. t.i.d. keep Ativan p.r.n.. Reason for continued inpatient stay Substantial Risk for: inability to function, rapid decompensation and med/psych decompensation Time Spent With Patient Time: Total time managing care of this patient today __20__ minutes.
[2024-05-25] MEDS: rOPINIRole HCL 0.25 MG TABLET PO ×3 (09:01→20:52)
[2024-05-25] MEDS: Benztropine Mesylate 0.5 MG TABLET PO ×2 (09:01→20:52)
[2024-05-25] MEDS: clonazePAM 0.5 MG TABLET PO ×3 (09:01→20:51)
[2024-05-25] MEDS: Escitalopram Oxalate 20 MG TABLET PO (09:01)
--- NOTE | 2024-05-25 14:14 | PM.PSYDC ---
DS: Providers Provider Date of Service: 05/25/24 Date of admission: 05/16/24 20:59 Date of discharge: 05/26/24 Primary care physician: Unknown Physician Attending physician on admission: Adolfo Villa Consults: 05/16/24 22:03 Consult to Hospitalist Routine Comment: Consulting Provider: Hospitalist Reason For Exam: admission physical Attending physician on discharge: Adolfo Villa DS: Diagnosis Discharge Diagnosis (1) Psychosis: Status: Acute (2) Depression: Status: Acute DS: Medications Discharge Medications Home Medications: Home Medications ?Medication ?Instructions ?Recorded ?Confirmed benztropine 0.5 mg tablet 0.5 mg PO BID 05/16/24 05/16/24 escitalopram oxalate 20 mg tablet 20 mg PO DAILY 05/16/24 05/16/24 risperidone 2 mg tablet 2 mg PO BEDTIME 05/16/24 05/16/24 ropinirole 0.25 mg tablet 0.25 mg PO TID 05/16/24 05/16/24 Mental Status Exam Mental Status Exam Patient Appearance: Well Grooomed and Appropriate Patient Orientation: Person Level of Consciousness: Awake and Appropriate Patient Behavior: Guarded and Passive Mood Description: Withdrawn Affect Description: Constricted Patient Cognition Impaired: Yes Ability to Follow Directions: Good Speech Pattern: Clear Hallucinations: None Delusions: Not Present Thought Process: Distracted and Slowed Thinking Thought Content: positive for [place] and positive for Poverty of Content Judgement: Fair DS: Summary Hospital Course Hospital Course: The patient is a 68-year-old female, , living with her her own place, referred to the emergency room of another hospital out of our catchment area since she called 911 stating that she was feeling overwhelmed and suicidal. She was rushed to the emergency room of that hospital, assessed by crisis and apparently she adamantly denies suicidal ideation but according to the assessment she had been worsening with suicidal ideation and ideas of harming herself. She also complained of anxiety, depressed mood, anhedonia and feelings of hopelessness. The assessment on the emergency room also noticed intermittently agitated and yelling she stating that she wants to go back home. She needed to be medicated IM at that point. She was assessed by the crisis team and transferring to this facility for psychiatric stabilization. On intake, the patient was severely anxious, she reported paranoid delusions stating that people wants to hurt her, she was seen responding to internal stimuli grossly disorganized. We review her medications and we increase her Risperdal from 2 mg at q.h.s. to 1 mg p.o. q.a.m. and kept at 2 mg at night. We reviewed also her antidepressants and she was at a higher dose of SSRIs. We decided to keep on the same dose and wait for the psychosis to resolve. The patient's psychosis resolved very fast on the 1st 4 days of admission, even though she reports anxiety and dysphoria. We decided to add a low dose of clonazepam p.o. t.i.d. to target anxiety with for improvement. She was less restless cooperative and pleasant. Even though, she was still dysphoric so we decided to start a low dose of Remeron at night. Her mood remained slightly dysphoric but she was less paranoid. Even though she was over-sedated so we decided to keep her back on Risperdal 2 mg p.o. q.h.s. and keep the benzodiazepines and p.r.n. Ativan. The marriage and family social worker had family meetings with her and since there were no safety concerns at this moment discharge planning was discussed. Time spent discussing smoking cessation with patient: 3 to 10 minutes Status at Discharge Cognitive/behavioral status at discharge: Impaired at baseline Functional status at discharge: independent ambulation Overall status at discharge: patient is not back to baseline Time Spent with Patient Time attestation: Total time managing care of this patient today __30__ minutes. Time spent: Less than 30 minutes Discharge Plan Discharge Anticipated Discharge Date/Time: 05/26/24 11:00 Patient Disposition: Home, Self-Care Discharge Diagnosis: Major depressive disorder Generalized anxiety disorder Mild cognitive impairment Referrals: Dr Mir Rascon MD [Other] - 06/08/24 11:30 am (Your next appointment with your PCP's office nurse practitioner is 06/08/24 at 11:30. ) Dr Haroldo Goldsmith Psychiatry [Other] - 1 Week [facility] [Other] - 1 Day (Referral was placed for home care services with [facility]. Intake will contact you in the late afternoon on 05/26/24 to set up home visit. ) Discharge Medications: New clonazepam 0.5 mg Tablet 0.5 mg PO TID 30 Days Qty: 90 0RF mirtazapine 7.5 mg Tablet 7.5 mg PO BEDTIME 30 Days Qty: 30 0RF trazodone 50 mg tablet 25 mg PO BEDTIME MRX1 PRN (Reason: Insomnia) 30 Days Qty: 15 0RF Continued benztropine 0.5 mg tablet 0.5 mg PO BID 30 Days Qty: 60 0RF risperidone 2 mg tablet 2 mg PO BEDTIME 30 Days Qty: 30 0RF ropinirole 0.25 mg tablet 0.25 mg PO TID 30 Days Qty: 90 0RF escitalopram oxalate 20 mg tablet 20 mg PO DAILY 30 Days Qty: 30 0RF Discharge Orders: Discharge Order (Routine); Ordered 05/26/24 Ordered By: Adolfo Villa Diet: Regular diet Activity on Discharge: As tolerated Stand Alone Forms: Patient Portal Discharge page Print Language: Uzbek Care Plan Goals: Care plan goals achieved in this admission Health Concerns: Continue treatment with primary care physician and other specialists as an outpatient Plan of Treatment: Continue treatment by primary psychiatrist provider and outpatient services continue with ancillary services. Assessment: Elderly female who was admitted for exacerbation of depression and psychosis, on admission she had paranoia depressive symptoms and severe anxiety that resolved with adding a 2nd antidepressant and the addition of benzodiazepines to target anxiety. The patient is safe at this moment ready to go back home.
[2024-05-25 20:00] VITALS: BP 111/52; PULSE 63; RESP 17; TEMP 36.6; O2SAT 92
[2024-05-25] MEDS: traZODone HCL 25 MG HALFTAB PO (20:51)
[2024-05-25] MEDS: Mirtazapine 7.5 MG TABLET PO (20:51)
[2024-05-25] MEDS: risperiDONE 2 MG TABLET PO (20:52)
[2024-05-26 08:00] VITALS: BP 127/57; PULSE 65; RESP 18; TEMP 36.2; O2SAT 94
[2024-05-26] MEDS: rOPINIRole HCL 0.25 MG TABLET PO (08:25)
[2024-05-26] MEDS: Escitalopram Oxalate 20 MG TABLET PO (08:25)
[2024-05-26] MEDS: Benztropine Mesylate 0.5 MG TABLET PO (08:25)
[2024-05-26] MEDS: clonazePAM 0.5 MG TABLET PO (08:25)
[2024-05-26 09:02] VITALS: BMI 27.3
== END 2024-05-26 14:05 | disposition home or self-care (01) | DRG 881 ==
PROVIDERS: Admitting Provider Psychiatry & Neurology Psychiatry; Visit Provider Psychiatry & Neurology Psychiatry
DX: F32.9 Major depressive disorder, single episode, unspecified (principal); G31.84 Mild cognitive impairment of uncertain or unknown etiology; Z87.891 Personal history of nicotine dependence; Z79.899 Other long term (current) drug therapy
CPT/HCPCS: 93005

== ENCOUNTER → 2024-05-16 20:59 | Outpatient (BNV) | payer MEDICARE, SELFPAY | PROVIDERS: Admitting Provider Psychiatry & Neurology Psychiatry; Visit Provider Psychiatry & Neurology Psychiatry | DX: F32.2 Major depressive disorder, single episode, severe without psychotic features (principal); F29 Unspecified psychosis not due to a substance or known physiological condition | CPT/HCPCS: 90792; 99231; 99232; 99238 ==

== ENCOUNTER → 2024-05-16 20:59 | Outpatient (BNV) | payer MEDICARE, SELFPAY | PROVIDERS: Admitting Provider Psychiatry & Neurology Psychiatry; Visit Provider Student in an Organized Health Care Education/Training Program | DX: F32.A Depression, unspecified (principal) | CPT/HCPCS: 99429 ==